=== PATIENT | female | born 2000 | race African-American/Black ===

== ENCOUNTER 2020-09-10 13:42 | Emergency (ER) | payer MEDICAID ==
[~2020-09-10] VITALS: Ht 165.1 cm; Wt 52.6 kg
[2020-09-10 15:12] VITALS: BP 111/64
== END 2020-09-10 18:00 | disposition home or self-care (01) ==
LOC: ER 13:42
DX: S40.862A Insect bite (nonvenomous) of left upper arm, initial encounter (principal); S40.861A Insect bite (nonvenomous) of right upper arm, initial encounter; W57.XXXA Bitten or stung by nonvenomous insect and other nonvenomous arthropods, initial encounter; Y93.89 Activity, other specified; Y92.89 Other specified places as the place of occurrence of the external cause; Y99.8 Other external cause status

== ENCOUNTER 2021-01-02 17:41 | Emergency (ER) | payer MEDICAID ==
[~2021-01-02] VITALS: Ht 165.1 cm; Wt 53.1 kg
[2021-01-02 17:42] VITALS: BP 109/70
== END 2021-01-02 20:00 | disposition left against medical advice (07) ==
LOC: ER 17:41
DX: S61.215A Laceration without foreign body of left ring finger without damage to nail, initial encounter (principal); S61.217A Laceration without foreign body of left little finger without damage to nail, initial encounter; Z53.21 Procedure and treatment not carried out due to patient leaving prior to being seen by health care provider; W26.9XXA Contact with unspecified sharp object(s), initial encounter; Y93.89 Activity, other specified; Y92.89 Other specified places as the place of occurrence of the external cause; Y99.8 Other external cause status

== ENCOUNTER 2021-05-11 09:39 | Emergency (ER) | payer SELFPAY ==
[~2021-05-11] VITALS: Ht 162.6 cm; Wt 55.8 kg
[2021-05-11 09:57] VITALS: BP 109/66
[2021-05-11] MEDS ORDERED: CLIN300C8 PO (10:01)
[2021-05-11] MEDS ORDERED: IBUP600T27 PO (10:01)
== END 2021-05-11 10:21 | disposition home or self-care (01) ==
LOC: ER 09:39
DX: K04.7 Periapical abscess without sinus (principal); F17.210 Nicotine dependence, cigarettes, uncomplicated

== ENCOUNTER 2024-05-14 15:37 | Emergency (ER) | payer SELFPAY ==
[~2024-05-14] VITALS: Ht 167.6 cm; Wt 63.7 kg
[~2024-05-14 15:37] MED LIST: CLIN1CAP70 PO; IBUP-1454 PO
[2024-05-14 16:33] VITALS: TEMP 99.1
[2024-05-14] MEDS: LORazepam 2MG/ML-1ML VIAL IM ONE ×2 (16:33→17:08)
[2024-05-14 16:43] VITALS: PULSE 127; RESP 22; O2SAT 97
--- NOTE | 2024-05-14 17:53 | ED.PDOC ---
Psychiatric HPI Comments 23 year old female presents to ED via EMS for chief complaint mental health. Per EMS, pt was at [employer] working when she suddenly began to behave erratically, speaking in tongue and chanting. VSS. Unable to elicit any medical history is the patient was in a psychotic event. Chief Complaint: Mental Health Time Seen by MD: 15:55 Primary Care Provider: TEZ Reviewed Notes: Nurses Notes, Laundry Assistant Notes, Medications, Allergies Information Source: Patient, Emergency Med Personnel Mode of Arrival: EMS Severity: Unable to Care for Self Severity of Pain: None Severity of Mental Status: Moderate Severity of Symptoms: Moderate Timing: Hours Duration: Since onset Prehospital treatment: None Presents with: Unclear Thinking, Bizarre Behavior Circumstance: Causing a Disturbance Current substance abuse: Unknown History of: None Quality: Confusion, Hallucinations Location: None Location of pain or injury: None Associated signs and symptoms: Hallucinations, Other Past Medical History PAST MEDICAL HISTORY: Denies Surgical History: Denies all surgeries HAND HIDE STRETCHER History: Denies all HAND HIDE STRETCHER Hx Family History Family History: Reviewed,noncontributory to illness Social History Smoker: Cigarettes Alcohol: Denies ETOH Use Drugs: Denies Drug Use Lives In: Home Constitutional: denies: chills, diaphoresis, fatigue, fever, malaise, sweats, weakness, others EENTM: denies: blurred vision, double vision, ear bleeding, ear discharge, ear drainage, ear pain, ear ringing, eye pain, eye redness, hearing loss, mouth pain, mouth swelling, nasal discharge, nose bleeding, nose congestion, nose pain, photophobia, tearing, throat pain, throat swelling, voice changes, others Respiratory: denies: cough, hemoptysis, orthopnea, SOB at rest, shortness of breath, SOB with excertion, stridor, wheezing, others Cardiovascular: denies: chest pain, dizzy spells, diaphoresis, Dyspnea on exertion, edema, irregular heart beat, left arm pain, lightheadedness, palpitations, PND, syncope, others Gastrointestinal: denies: abdomen distended, abdominal pain, blood streaked bowels, constipated, diarrhea, dysphagia, difficulty swallowing, hematemesis, melena, nausea, poor appetite, poor fluid intake, rectal bleeding, rectal pain, vomiting, others Genitourinary: denies: abnormal vagina bleeding, burning, dyspareunia, dysuria, flank pain, frequency, hematuria, incontinence, pain, , vagina discharge, urgency, others Neurological: denies: dizziness, fainting, headache, left sided numbness, left sided weakness, numbness, paresthesia, pre-existing deficit, right sided numbness, right sided weakness, seizure, speech problems, tingling, tremors, weakness, others Musculoskeletal: denies: back pain, gout, joint pain, joint swelling, muscle pain, muscle stiffness, neck pain, others Integumetry: denies: bruises, change in color, change in hair/nails, dryness, laceration, lesions, lumps, rash, wounds, others Allergic/Immunocompromised: denies: Difficulty Healing, Frequent Infections, Hives, Itching, others Hematologic/Lymphatic: denies: anemia, blood clots, easy bleeding, easy bruising, swollen glands, others Endocrine: denies: excessive hunger, excessive sweating, excessive thirst, excessive urination, flushing, intolerance to cold, intolerance to heat, unexplained weight gain, unexplained weight loss, others Psychiatric: reports: others; denies: anxiety, bipolar disorder, depression, hopeless, panic disorder, schizophrenia, sleepless, suicidal Unable to Obtain due to: Altered Mental Status All Other Systems: Reviewed and Negative Physical Exam General Appearance: Moderate Distress (Due to psychotic event.) HEENT: Normal ENT Inspection, Pharynx Normal, TMs Normal Neck: Full Range of Motion, Non-Tender, Normal, Normal Inspection Respiratory: Chest Non-Tender, Lungs Clear, No Accessory Muscle Use, No Respiratory Distress, Normal Breath Sounds Cardiovascular: No Edema, No JVD, No Murmur, No Gallop, Normal Peripheral Pul ses, Regular Rate/Rhythm Breast Exam: Deferred Gastrointestinal: No Organomegaly, Non Tender, No Pulsatile Mass, Normal Bowel Sounds, Soft Genitalia: Deferred Pelvic: Deferred Rectal: Deferred Extremities: No calf tenderness, Normal capillary refill, No pedal edema Musculoskeletal : Apperance: Normal Neurologic: Alert, No Motor Deficits, No Sensory Deficits, Other ( Patient was acting erratically and speaking in tongues.) Cerebellar Function: NOT DONE Reflexes: NOT DONE Skin: Dry, Normal Color, Warm Lymphatic: No Adenopathy Was a procedure done? Was a procedure done?: No Psych Differential Dx Psych. Differential Dx: Anxiety, Bipolar Disorder, Schizoprenia, Suicidal X-Ray, Labs, Meds, VS Vital Signs Date Time Temp Pulse Resp B/P (MAP) Pulse Ox O2 Delivery O2 Flow Rate FiO2 05/14/24 19:50 16 112/65 (81) 98 05/14/24 19:50 16 98 Room Air* 0 21 05/14/24 16:43 127 22 97 Room Air* 0 21 05/14/24 16:43 123 22 116/74 (88) 97 05/14/24 16:33 99.1 122 25 127/84 (98) 99 99.1 Lab Test 05/14/24 18:44 Range/Units White Blood Count 11.8 H 4.4-10.8 10^3/uL Red Blood Count 4.31 4.0-5.20 10^6/uL Hemoglobin 13.0 12.2-16.2 g/dL Hematocrit 38.1 36.0-46.0 % Mean Corpuscular Volume 88.3 80.0-100.0 fL Mean Corpuscular Hemoglobin 30.0 28.0-32.0 pg Mean Corpuscular Hemoglobin Concent 34.0 32.0-36.0 g/dL Red Cell Distribution Width 13.5 11.8-14.3 % Platelet Count 221 140-450 10^3/uL Mean Platelet Volume 10.9 H 6.9-10.8 fL Neutrophils (%) (Auto) 85.6 H 37.0-80.0 % Lymphocytes (%) (Auto) 9.6 L 10.0-50.0 % Monocytes (%) (Auto) 4.5 0.0-12.0 % Eosinophils (%) (Auto) 0.0 0.0-7.0 % Basophils (%) (Auto) 0.3 0.0-2.0 % Neutrophils # (Auto) 10.1 H 1.6-8.6 10 ^3/uL Lymphocytes # (Auto) 1.1 0.4-5.4 10 ^3/uL Monocytes # (Auto) 0.5 0-1.3 10 ^3/uL Eosinophils # (Auto) 0 0-0.8 10 ^3/uL Basophils # (Auto) 0 0-0.2 10 ^3/uL Nucleated Red Blood Cells 0.0 % Sodium Level 141 136-145 mmol/L Potassium Level 3.7 3.5-5.1 mmol/L Chloride Level 108 H 98-107 mmol/L Carbon Dioxide Level 23 20-31 mmol/L Anion Gap 10 5-15 Blood Urea Nitrogen 9 9-23 mg/dL Creatinine 0.71 0.550-1.02 mg/dL Glomerular Filtration Rate Calc 121 >90 mL/min BUN/Creatinine Ratio 12.7 10.0-20.0 Serum Glucose 91 74-106 mg/dL Lactic Acid Level 1.0 0.4-2.0 mmol/L Calcium Level 9.8 8.7-10.4 mg/dL Total Bilirubin 0.8 0.2-1.0 mg/dL Aspartate Amino Transferase (AST) 19 13-40 U/L Alanine Aminotransferase (ALT) 14 7-40 U/L Alkaline Phosphatase 56 46-116 U/L Total Protein 7.4 5.7-8.2 g/dL Albumin 4.7 3.2-4.8 g/dL Lipase 27 12-53 U/L Plasma/Serum Blood Alcohol < 3.0 <10 mg/dL Current Medications Medications (Trade) Dose Ordered Sig/Asif Route Start Time Stop Time Status Last Admin Lorazepam (Ativan Inj) 1 mg PRN ONCE IM 05/14/24 15:45 05/14/24 15:46 DC 05/14/24 16:33 Lorazepam (Ativan Inj) 1 mg ONCE ONCE IM 05/14/24 17:00 05/14/24 17:01 DC 05/14/24 17:08 X-Ray, Labs, Meds, VS Comment Patient will remain in ED until laboratories were returned. Patient will require a psych evaluation and probable placement. Patient care will be transferred to Dr. Sanchez as he is the overnight MD. After several hours, patient stated she want to leave the facility. I advised the patient that I think that would be dangerous as there is a potential for significant medical consequences. Patient stated she understood and signed an AMA form prior to leaving the campus. Patient denied any SI or HI. Patient's brother will receive the patient for discharge. Time of 1ST Reevaluation: 21:51 Reevaluation 1ST: Improved Consultation: PCP, Psychiatry Patient Education/Counseling: Diagnosis, Treatment Family Education/Counseling: Diagnosis, Treatment, No Family Present Departure 1 Departure Time of Disposition: 21:51 Impression: Primary Impression: Psychosis Disposition: LEFT AGAINST MEDICAL ADVICE Condition: Fair Discharged With: Self, Relative Critical Care Note Critical Care Time?: No Stability Stability form required: No Heart Score Heart Score: Heart Score Response (Comments) Value History N/A 0 EKG N/A 0 Age N/A 0 Risk Factors N/A 0 Troponin N/A 0 Total 0 I personally scribed for JUSTIN MONTGOMERY PAC ([email or web address]) on 05/14/24 at 17:53. Electronically submitted by Marta Brown ([email or web address]). JUSTIN MONTGOMERY PAC May 14, 2024 17:53
[2024-05-14 19:07] LABS: Basophils # (auto) 0 10 ^3/uL (0-0.2); Basophils % (auto) 0.3 % (0.0-2.0); Eosinophils # (auto) 0 10 ^3/uL (0-0.8); Hematocrit 38.1 % (36.0-46.0); Lymphocytes # (auto) 1.1 10 ^3/uL (0.4-5.4); Lymphocytes % (auto) 9.6 % (10.0-50.0); Mean Corpuscular Volume 88.3 fL (80.0-100.0); Monocytes # (auto) 0.5 10 ^3/uL (0-1.3); Monocytes % (auto) 4.5 % (0.0-12.0); Neutrophils # (auto) 10.1 10 ^3/uL (1.6-8.6); Neutrophils % (auto) 85.6 % (37.0-80.0); Platelet Count (auto) 221 10^3/uL (140-450); Red Blood Cells 4.31 10^6/uL (4.0-5.20); Red Cell Distribution Width 13.5 % (11.8-14.3); White Blood Cell 11.8 10^3/uL (4.4-10.8)
[2024-05-14 19:27] LABS: Alanine Aminotransferase 14 U/L (7-40); Albumin 4.7 g/dL (3.2-4.8); Alkaline Phosphatase 56 U/L (46-116); Anion Gap 10 (5-15); Aspartate Aminotransferase 19 U/L (13-40); BUN/Creatinine Ratio 12.7 (10.0-20.0); Blood Urea Nitrogen 9 mg/dL (9-23); Calcium 9.8 mg/dL (8.7-10.4); Carbon Dioxide 23 mmol/L (20-31); Chloride 108 mmol/L (98-107); Glucose 91 mg/dL (74-106); Lipase 27 U/L (12-53); Potassium 3.7 mmol/L (3.5-5.1); Sodium 141 mmol/L (136-145); Total Protein 7.4 g/dL (5.7-8.2)
[2024-05-14 19:28] LABS: Bilirubin, Total 0.8 mg/dL (0.2-1.0)
[2024-05-14 19:47] LABS: Blood Alcohol < 3.0 mg/dL (<10)
[2024-05-14 19:50] VITALS: BP 112/65; RESP 16; O2SAT 98
== END 2024-05-15 02:40 | disposition left against medical advice (07) ==
LOC: EDBD 15:37 → ER 15:37 → EDUNIT# 15:37 → ER 05-15 02:40
DX: F29 Unspecified psychosis not due to a substance or known physiological condition (principal); R41.82 Altered mental status, unspecified; F17.210 Nicotine dependence, cigarettes, uncomplicated
CPT/HCPCS: 36415; 80053; 80320; 83605; 83690; 85025; 96372; 99284; J2060

== ENCOUNTER 2024-05-16 00:46 | Emergency (ER) | payer MEDICAID ==
[~2024-05-16] VITALS: Ht 154.9 cm; Wt 52.3 kg
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
[2024-05-16 01:52] LABS: Acetaminophen < 2.0 UG/ML (10.0-20.0); Salicylate < 3.0 mg/dL (-30)
[2024-05-16 02:16] VITALS: TEMP 98.4
[2024-05-16 04:00] VITALS: BP 116/78; PULSE 79; RESP 20; O2SAT 98
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
[2024-05-16 06:41] LABS: Amphetamine Screen, Urine Neg (NEGATIVE); Barbiturate Scree,Urine Neg (NEGATIVE); Benzodiazephine Screen, Urine Neg (NEGATIVE); Cannabinoid Screen, Urine Pos (NEGATIVE); Cocaine Screen, Urine Neg (NEGATIVE); Opiate Scree,Urine Neg (NEGATIVE); Phencyclidine Screen, Urine Neg (NEGATIVE)
[2024-05-16] MEDS ORDERED: HALOPERIDOL LACTATE 5 MG/ML INJ VIAL IM ONE (09:00)
[2024-05-16] MEDS ORDERED: LORazepam 2MG/ML-1ML VIAL IM ONE (09:00)
== END 2024-05-16 08:30 | disposition left against medical advice (07) ==
LOC: EDBD 00:46 → ER 00:46
DX: F29 Unspecified psychosis not due to a substance or known physiological condition (principal); Z73.6 Limitation of activities due to disability; Z79.899 Other long term (current) drug therapy
CPT/HCPCS: 36415; 80307; 80320; 80329; 84702

== ENCOUNTER 2024-05-16 09:42 | Inpatient (IN) | payer MEDICAID ==
[~2024-05-16] VITALS: Ht 160 cm; Wt 54.5 kg
[2024-05-16] MEDS: HALOPERIDOL LACTATE 5 MG/ML INJ VIAL IM ONE (10:14)
[2024-05-16] MEDS: LORazepam 2MG/ML-1ML VIAL IM ONE (10:15)
--- NOTE | 2024-05-16 10:27 | ED.PDOC ---
Psychiatric HPI Comments 23 year old female JANIS presents to the ED with chief complaint of mental health evaluation. EMS reports patient had eloped from the ED earlier today when there was an attempt to provide medication for the patient. EMS relays that 's had found the patient and brought her back to the ED due to believing she was on a hold. Patient continues to demonstrate delusions and psychosis, but denies any SI, HI, AH, or VH. Chief Complaint: Mental Health Time Seen by MD: 10:23 Primary Care Provider: DENIES Reviewed Notes: Nurses Notes, Medications, Allergies Information Source: Patient, Emergency Med Personnel Mode of Arrival: EMS Severity: Able to Care for Self, Unable to Control Self Severity of Pain: None Severity of Mental Status: Moderate Severity of Symptoms: Moderate Timing: Days Duration: Since onset Prehospital treatment: None Presents with: Bizarre Behavior Ingestion: None Circumstance: Causing a Disturbance Current substance abuse: None Stressors: None History of: None Past Medical History PAST MEDICAL HISTORY: Denies Surgical History: Denies all surgeries 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: 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 ROOM CLERK Hx Family History Family History: Reviewed,noncontributory to illness Social History Smoker: Non-Smoker Alcohol: Denies ETOH Use Drugs: Denies Drug Use Lives In: Home Constitutional: denies: chills, diaphoresis, fatigue, fever, malaise, sweats, weakness, others EENTM: denies: blurred vision, double vision, ear bleeding, ear discharge, ear drainage, ear pain, ear ringing, eye pain, eye redness, hearing loss, mouth pain, mouth swelling, nasal discharge, nose bleeding, nose congestion, nose pain, photophobia, tearing, throat pain, throat swelling, voice changes, others Respiratory: denies: cough, hemoptysis, orthopnea, SOB at rest, shortness of breath, SOB with excertion, stridor, wheezing, others Cardiovascular: denies: chest pain, dizzy spells, diaphoresis, Dyspnea on exertion, edema, irregular heart beat, left arm pain, lightheadedness, palpitations, PND, syncope, others Gastrointestinal: denies: abdomen distended, abdominal pain, blood streaked bowels, constipated, diarrhea, dysphagia, difficulty swallowing, hematemesis, melena, nausea, poor appetite, poor fluid intake, rectal bleeding, rectal pain, vomiting, others Genitourinary: denies: abnormal vagina bleeding, burning, dyspareunia, dysuria, flank pain, frequency, hematuria, incontinence, pain, , vagina discharge, urgency, others Neurological: denies: dizziness, fainting, headache, left sided numbness, left sided weakness, numbness, paresthesia, pre-existing deficit, right sided numbness, right sided weakness, seizure, speech problems, tingling, tremors, weakness, others Musculoskeletal: denies: back pain, gout, joint pain, joint swelling, muscle pain, muscle stiffness, neck pain, others Integumetry: denies: bruises, change in color, change in hair/nails, dryness, laceration, lesions, lumps, rash, wounds, others Allergic/Immunocompromised: denies: Difficulty Healing, Frequent Infections, Hives, Itching, others Hematologic/Lymphatic: denies: anemia, blood clots, easy bleeding, easy bruising, swollen glands, others Endocrine: denies: excessive hunger, excessive sweating, excessive thirst, excessive urination, flushing, intolerance to cold, intolerance to heat, unexp lained weight gain, unexplained weight loss, others Psychiatric: denies: anxiety, bipolar disorder, depression, hopeless, panic disorder, schizophrenia, sleepless, suicidal, others All Other Systems: Reviewed and Negative Physical Exam General Appearance: Moderate Distress, Normal HEENT: Normal ENT Inspection, PERRL/EOMI Neck: Full Range of Motion, Non-Tender, Normal, Normal Inspection Respiratory: Chest Non-Tender, Lungs Clear, No Accessory Muscle Use, No Respiratory Distress, Normal Breath Sounds Cardiovascular: No Edema, No JVD, No Murmur, No Gallop, Normal Peripheral Pulses, Regular Rate/Rhythm Breast Exam: Deferred Gastrointestinal: No Organomegaly, Non Tender, No Pulsatile Mass, Normal Bowel Sounds, Soft Genitalia: Deferred Pelvic: Deferred Rectal: Deferred Extremities: No calf tenderness, Normal capillary refill, Normal inspection, Normal range of motion, Non-tender, No pedal edema Musculoskeletal : Apperance: Normal Neurologic: Alert, assembler adjuster II-XII nml as Tested, No Motor Deficits, Normal Affect, Normal Mood, No Sensory Deficits Cerebellar Function: Normal Reflexes: Normal Skin: Dry, Normal Color, Warm Peripheral Pulses: 3+ Radial (R), 3+ Radial (L) Lymphatic: No Adenopathy Was a procedure done? Was a procedure done?: No Psych Differential Dx Psych. Differential Dx: Anxiety X-Ray, Labs, Meds, VS Vital Signs Date Time Temp Pulse Resp B/P (MAP) Pulse Ox O2 Delivery O2 Flow Rate FiO2 05/16/24 09:50 98.6 88 18 142/76 (98) 100 98.6 Current Medications Medications (Trade) Dose Ordered Sig/Asif Route Start Time Stop Time Status Last Admin Haloperidol Lactate (Haldol) 10 mg ONCE ONCE IM 05/16/24 10:00 05/16/24 10:01 DC 05/16/24 10:14 Lorazepam (Ativan Inj) 1 mg ONCE ONCE IM 05/16/24 10:00 05/16/24 10:01 DC 05/16/24 10:15 Patient alert Was just in this ER. She ran off. Vitals stable. Psychiatric evaluation placed on a hold. Was given Haldol. Was given Ativan. Reviewed her previous visit. She will be admitted for further studies. Denies suicidal or homicidal ideation. Continue monitoring. Time of 1ST Reevaluation: 11:23 Reevaluation 1ST: Unchanged Patient Education/Counseling: Diagnosis, Treatment Family Education/Counseling: No Family Present Additional Information Previous visit documents reviewed: 05/16/24 for mental health The following tests were ordered, and results were reviewed by me: None Additional Information was gathered from interviewing the following independent historians: EMS I reviewed and agreed with the following test results read by other providers: None I discussed treatment and results with medical personnel and: Patient Comprehensive systems review obtained and negative except for what is stated in the HPI. Departure 1 Departure Time of Disposition: 10:36 Impression: Primary Impression: Psychosis Qualified Codes: F29 - Unspecified psychosis not due to a substance or known physiological condition Disposition: ADMITTED INPATIENT Admit to: Med Surg Condition: Guarded Critical Care Note Critical Care Time?: No Stability Stability form required: No Heart Score Heart Score: Heart Score Response (Comments) Value History N/A 0 EKG N/A 0 Age N/A 0 Risk Factors N/A 0 Troponin N/A 0 Total 0 I personally scribed for CHELLY LOPEZ MD ([email or web address]) on 05/16/24 at 10:27. Electronically submitted by Quinn Donovan ([email or web address]). CHELLY LOPEZ MD May 16, 2024 10:27
--- NOTE | 2024-05-16 13:14 | DVHHP2 ---
History of Present Illness Reason for Visit: Psychosis History of Present Illness 23-year-old female unknown medical history unknown surgical history not answering provider does not respond to provider chief complaint patient appears to be brought in by ambulance for mental health evaluation. It appears patient was in the ED yesterday and she had low police department found her and brought her back to the ER. It appears patient was to be placed on hold due to acute says causes but has not been evaluated by psych as of yet. Did review labs from yesterday CBC unremarkable CMP unremarkable UA no major infection seen. Patient was cleared for psych. Urine drug screen only showed marijuana. We will admit for psych placement patient was medically stable for transfer Past Medical History Unknown medical history patient does not answer any questions Past Surgical History Unknown surgical history patient does not answer Past Social History Unknown if drink smoke or do drugs patient does not answer Review of Systems Review of Systems Unable to assess HPI due to patient not answering questions Allergies: Coded Allergies: NO KNOWN ALLERGIES (Unverified , 02/25/12) Exam Vital Signs Vital Signs Date Time Temp Pulse Resp B/P (MAP) Pulse Ox O2 Delivery O2 Flow Rate FiO2 05/16/24 09:50 98.6 88 18 142/76 (98) 100 98.6 General Appearance: Other (Nonverbal on my exam declines exam) Labs/Xrays I reviewed labs from May 14, 2024 Assessment/Plan Assessment/Plan acute psychosis unknown etiology unknown psych history Blood work unremarkable Urine drug screen only shows marijuana Unknown psych history Order Ativan as needed or Haldol for acute agitation Patient medically stable for psych evaluation Order tele psych follow up recs Continue one-to-one sitter for now survey worker to assess for discharge planning fen/ppx diet hl scd no dvt ppx since ambulatory plan admit to medicine for placement Plan discussed with: Other (reviewed chart ) Date of Service: May 16, 2024 Billing Provider: LAMONT ANDRADE DNP Common Visit Codes: 37459-[id number] INP/OBS CARE (MOD) LAMONT ANDRADE DNP May 16, 2024 13:14
[2024-05-16] MEDS ORDERED: NITROGLYCERIN 0.4 MG SL TAB SL PRN (13:15)
[2024-05-16] MEDS ORDERED: DOCUSATE SOD 100 MG CAP PO PRN (13:15)
[2024-05-16] MEDS ORDERED: ONDANSETRON HCL 4 MG/2 ML VIAL IV PRN (13:15)
[2024-05-17 02:10] VITALS: BP 110/66; PULSE 66; RESP 18; TEMP 98; O2SAT 96
== END 2024-05-17 05:58 | disposition left against medical advice (07) | DRG 751 ==
LOC: ER 09:42 → EDBD 09:42 → OVERFLOW 13:12
PROVIDERS: ADMIT Nurse Practitioner Acute Care; ATTEND Nurse Practitioner Acute Care
DX: F23 Brief psychotic disorder (principal); F12.90 Cannabis use, unspecified, uncomplicated; Z53.29 Procedure and treatment not carried out because of patient's decision for other reasons
CPT/HCPCS: 96372; G0378

== ENCOUNTER 2025-01-18 17:11 | Emergency (ER) | payer SELFPAY ==
[~2025-01-18] VITALS: Ht 162.6 cm; Wt 60.6 kg
[2025-01-18] MEDS: LIDOCAINE VISCOUS 2% 15ML UD PO ONE (17:49)
[2025-01-18 17:56] VITALS: BP 120/76; PULSE 74; RESP 16; TEMP 98.1; O2SAT 97
[2025-01-18] MEDS ORDERED: IBUP1TAB5 PO (18:03)
[2025-01-18] MEDS ORDERED: AMOX500T3 PO (18:03)
--- NOTE | 2025-01-18 18:12 | ED.PDOC ---
Eye-HPI HPI Comments 24-year-old female who presents to the ED complaint of tooth pain. The patient states that she has a wisdom tooth in the right lower quadrant of her mouth and states it is growing outwards towards her jaw and states a space has formed in between and an abscess has developed. Patient states she has noticed abscess develop over the past year but states she decided not to take care of it until the past few days because it increasing pain when attempting to eat or drink. Patient otherwise states that she has not seen a dentist dentist in the past few years some due to not having dental insurance. The patient in the ED otherwise has stable vitals. The patient otherwise denies any other symptoms. Chief Complaint: Tooth Pain Time Seen by MD: 17:39 Primary Care Provider: DENIES Reviewed Notes: Medications, Allergies Allergies: Coded Allergies: Pork Allergy (Obsolete) (Verified Allergy, Intermediate, 05/17/24) Home Meds Active Scripts Clindamycin Hcl (Clindamycin Hcl) 300 Mg Cap, 1 CAP PO TID, #30 CAP Prov:KRISTIAN VENEGAS 01/20/25 Chlorhexidine Gluconate (Mouth (CHLORHEXIDINE ORAL RINSE) 473 Ml So, 15 ML MT Q12HR for 7 Days, #300 ML 0 Refills Prov:HARRIS ROQUE EXPENSE ANALYST 01/18/25 Ibuprofen Micronized (Ibuprofen) 600 Mg Tab, 600 MG PO TIDPRN PRN for 10 Days, #30 TAB 0 Refills Prov:HARRIS ROQUE EXPENSE ANALYST 01/18/25 Amoxicillin Trihydrate (Amoxicillin) 500 Mg Tab, 1 TAB PO BID for 10 Days, #20 TAB 0 Refills Prov:HARRIS ROQUE EXPENSE ANALYST 01/18/25 Ibuprofen (Ibuprofen) 600 Mg Tab, 600 MG PO TID for 10 Days, #30 TAB Prov:RKISTIAN VENEGAS 05/11/21 Clindamycin Hcl (Clindamycin Hcl) 300 Mg Cap, 300 MG PO TID, #30 CAP Prov:KRISTIAN VENEGAS 05/11/21 Information Source: Patient Mode of Arrival: Ambulatory Brought in by: Self Past Medical History PAST MEDICAL HISTORY: Denies Surgical History: Denies all surgeries LEAD WELDER History: Denies all LEAD WELDER Hx Family History Family History: Reviewed,noncontributory to illness Social History Smoker: Non-Smoker Alcohol: Denies ETOH Use Drugs: Denies Drug Use Lives In: Home Constitutional: denies: chills, diaphoresis, fatigue, fever, malaise, sweats, weakness, others EENTM: reports: mouth pain; denies: blurred vision, double vision, ear ble eding, ear discharge, ear drainage, ear pain, ear ringing, eye pain, eye redness, hearing loss, mouth swelling, nasal discharge, nose bleeding, nose congestion, nose pain, photophobia, tearing, throat pain, throat swelling, voice changes, others Respiratory: denies: cough, hemoptysis, orthopnea, SOB at rest, shortness of breath, SOB with excertion, stridor, wheezing, others Cardiovascular: denies: chest pain, dizzy spells, diaphoresis, Dyspnea on exertion, edema, irregular heart beat, left arm pain, lightheadedness, palpitations, PND, syncope, others Gastrointestinal: denies: abdomen distended, abdominal pain, blood streaked bowels, constipated, diarrhea, dysphagia, difficulty swallowing, hematemesis, melena, nausea, poor appetite, poor fluid intake, rectal bleeding, rectal pain, vomiting, others Genitourinary: denies: abnormal vagina bleeding, burning, dyspareunia, dysuria, flank pain, frequency, hematuria, incontinence, pain, , vagina discharge, urgency, others Neurological: denies: dizziness, fainting, headache, left sided numbness, left sided weakness, numbness, paresthesia, pre-existing deficit, right sided numbness, right sided weakness, seizure, speech problems, tingling, tremors, weakness, others Musculoskeletal: denies: back pain, gout, joint pain, joint swelling, muscle pain, muscle stiffness, neck pain, others Integumetry: denies: bruises, change in color, change in hair/nails, dryness, laceration, lesions, lumps, rash, wounds, others Allergic/Immunocompromised: denies: Difficulty Healing, Frequent Infections, Hives, Itching, others Hematologic/Lymphatic: denies: anemia, blood clots, easy bleeding, easy bruising, swollen glands, others Endocrine: denies: excessive hunger, excessive sweating, excessive thirst, excessive urination, flushing, intolerance to cold, intolerance to heat, unexplained weight gain, unexplained weight loss, others Psychiatric: denies: anxiety, bipolar disorder, depression, hopeless, panic disorder, schizophrenia, sleepless, suicidal, others All Other Systems: Reviewed and Negative Physical Exam General Appearance: No Apparent Distress, Normal HEENT: Other (r lower quardant abscess noted, multiple dental caries to r upper and lower quadrant) Neck: Full Range of Motion, Non-Tender, Normal, Normal Inspection Respiratory: Chest Non-Tender, Lungs Clear, No Accessory Muscle Use, No Respiratory Distress, Normal Breath Sounds Cardiovascular: No Edema, No JVD, No Murmur, No Gallop, Normal Peripheral Pulses, Regular Rate/Rhythm Breast Exam: Deferred Gastrointestinal: No Organomegaly, Non Tender, No Pulsatile Mass, Normal Bowel Sounds, Soft Genitalia: Deferred Pelvic: Deferred Rectal: Deferred Extremities: No calf tenderness, Normal capillary refill, Normal inspection, Normal range of motion, Non-tender, No pedal edema Musculoskeletal : Apperance: Normal Neurologic: Alert, site technician II-XII nml as Tested, No Motor Deficits, Normal Affect, Normal Mood, No Sensory Deficits Cerebellar Function: Normal Reflexes: Normal Skin: Dry, Normal Color, Warm Lymphatic: No Adenopathy Was a procedure done? Was a procedure done?: Yes Sedation Sedation?: No Incision and Drainage Incision and Drainage: Abscess Anesthetic: Lidocaine Preparation: Other (NONE.) Incision and Wound: Pus Informed consent obtained: Yes Risks/benefits/alt described: Yes EENT DIFF Eye: Other Ear: Dental, Pharyngitis, TMJ Syndrome X-Ray, Labs, Meds, VS Vital Signs Date Time Temp Pulse Resp B/P (MAP) Pulse Ox O2 Delivery O2 Flow Rate FiO2 01/18/25 17:56 98.1 74 16 120/76 (91) 97 98.1 01/18/25 17:56 74 16 97 Room Air 01/18/25 17:12 98.2 100 16 115/79 98 98.2 X-Ray, Labs, Meds, VS Comment Patient arrives alert and oriented, ABC's intact, afebrile, vital signs stable, saturating well in room air Abscess This patient presents with signs and symptoms consistent with a gingival abscess. The abscess is localized without any evidence of deep soft tissue infection based on physical examination. The patient required incision and drainage. I also considered deep space infection, necrotizing sepsis, however, this is less likely as the patient does not have rapid expanding erythema or pain out of proportion Procedure Note: Verbal informed consent was obtained from the patient. I discussed the indications, benefits, alternatives and complications to performing an incision and drainage. The patient understands the risks include, but are not limited to scarring, underlying structure injury, bleeding, nerve injury, new infection, and resultant disability. The skin surrounding the abscess was locally anesthetized using 1% Lidocaine An incision using a 18 guage was made overlying the abscess. The wound was hemostatic at the conclusion of the procedure. The patient did not appear to suffer any complications as a result of the procedure. The patient was Rx ABX and will f/u with PMD and their dental provider 1-3 days or return to the ER sooner if it worsens. The patient understands to return to the ER or seek immediate medical attention if the symptoms worsen. Time of 1ST Reevaluation: 18:10 Reevaluation 1ST: Unchanged Patient Education/Counseling: Diagnosis, Treatment Family Education/Counseling: No Family Present SEPSIS Sepsis Screen Date sepsis recognized/suspect: Jan 18, 2025 Time Sepsis recognized/suspect: 1713 Recent Procedure: No On Antibiotic Therapy: No Respiratory Rate >20: No Heart Rate >90: Yes Temp<36 C (96.8 F) or >38.3 C: No SBP <90 or MAP <65 mmHG: No New Acute Mental Status Change: No Is the patient on CPAP, BIPAP,: No Vital Signs Date Time Temp Pulse Resp B/P (MAP) Pulse Ox O2 Delivery O2 Flow Rate FiO2 01/18/25 17:56 98.1 74 16 120/76 (91) 97 98.1 01/18/25 17:56 74 16 97 Room Air 01/18/25 17:12 98.2 100 16 115/79 98 98.2 Departure 1 Departure Time of Disposition: 18:13 Impression: Primary Impression: Dental infection Additional Impression: Abscess Disposition: HOME / SELF CARE / HOMELESS Condition: Stable e-Prescriptions Chlorhexidine Gluconate (Mouth (CHLORHEXIDINE ORAL RINSE) 473 Ml So 15 ML MT Q12HR for 7 Days, #300 ML 0 Refills Prov: HARRIS ROQUE EXPENSE ANALYST 01/18/25 Ibuprofen Micronized (Ibuprofen) 600 Mg Tab 600 MG PO TIDPRN PRN for 10 Days, #30 TAB 0 Refills Prov: HARRIS ROQUE EXPENSE ANALYST 01/18/25 Amoxicillin Trihydrate (Amoxicillin) 500 Mg Tab 1 TAB PO BID for 10 Days, #20 TAB 0 Refills Prov: HARRIS ROQUE NP 01/18/25 Discharged With: Self Critical Care Note Critical Care Time?: No Stability Stability form required: No Heart Score Heart Score: Heart Score Response (Comments) Value History N/A 0 EKG N/A 0 Age N/A 0 Risk Factors N/A 0 Troponin N/A 0 Total 0 I personally scribed for HARRIS ROQUE NP ([email or web address]) on 01/18/25 at 18:12. Electronically submitted by Barb Smart ([email or web address]). HARRIS ROQUE NP Jan 18, 2025 18:12
[2025-01-18] MEDS ORDERED: CHL12OR MT (18:13)
== END 2025-01-18 18:22 | disposition home or self-care (01) ==
LOC: ER 17:11
DX: K04.7 Periapical abscess without sinus (principal); M27.2 Inflammatory conditions of jaws; Z79.899 Other long term (current) drug therapy
CPT/HCPCS: 41800

== ENCOUNTER 2025-01-20 10:36 | Emergency (ER) | payer SELFPAY ==
[~2025-01-20] VITALS: Ht 165.1 cm; Wt 61.5 kg
[~2025-01-20 10:36] MED LIST changes: +AMOX500T3 PO; +CHL12OR MT; +IBUP1TAB5 PO
[2025-01-20 10:55] VITALS: BP 112/63; PULSE 76; RESP 18; TEMP 98.7; O2SAT 96
--- NOTE | 2025-01-20 11:04 | ED.PDOC ---
Eye-HPI HPI Comments A 24 YEAR OLD FEMALE PRESENTS TO THE ED WITH COMPLAINT OF DENTAL PAIN. PATIENT STATES HE HAS BEEN EXPERIENCING DENTAL PAIN ON THE RIGHT UPPER SIDE OF HER MOUTH FOR THE PAST 3 DAYS. PATIENT REPORTS SHE BEGAN TO EXPERIENCE MILD RIGHT-SIDED FACIAL SWELLING 2 DAYS AGO, PROMPTING HER TO COME TO THE ED TODAY FOR EVALUATION. PATIENT ALSO NOTES THAT SHE HAS BEEN TAKING AMOXICILLIN, BUT NOTES THERE HAS BEEN NO IMPROVEMENT IN HER SYMPTOMS. PATIENT DENIES FEVER, CHILLS, SHORTNESS OF BREATH, CHEST PAIN, ABDOMINAL PAIN, NAUSEA, VOMITING, HEADACHE, OR OTHER COMPLAINTS. NO OTHER SYMPTOMS OR MODIFYING FACTORS AT THIS TIME. PATIENT IS ALERT, ORIENTED X 4, AND HAS STEADY GAIT. Chief Complaint: Tooth Pain Time Seen by MD: 10:37 Primary Care Provider: TEZ Reviewed Notes: Nurses Notes, Medications, Allergies Allergies: Coded Allergies: Pork Allergy (Obsolete) (Verified Allergy, Intermediate, 05/17/24) Home Meds Active Scripts Clindamycin Hcl (Clindamycin Hcl) 300 Mg Cap, 1 CAP PO TID, #30 CAP Prov:KRISTIAN VENEGAS 01/20/25 Chlorhexidine Gluconate (Mouth (CHLORHEXIDINE ORAL RINSE) 473 Ml So, 15 ML MT Q12HR for 7 Days, #300 ML 0 Refills Prov:HARRIS ROQUE BELT BACK OPERATOR 01/18/25 Ibuprofen Micronized (Ibuprofen) 600 Mg Tab, 600 MG PO TIDPRN PRN for 10 Days, #30 TAB 0 Refills Prov:HARRIS ROQUE BELT BACK OPERATOR 01/18/25 Amoxicillin Trihydrate (Amoxicillin) 500 Mg Tab, 1 TAB PO BID for 10 Days, #20 TAB 0 Refills Prov:HARRIS ROQUE BELT BACK OPERATOR 01/18/25 Ibuprofen (Ibuprofen) 600 Mg Tab, 600 MG PO TID for 10 Days, #30 TAB Prov:KRISTIAN VENEGAS 05/11/21 Clindamycin Hcl (Clindamycin Hcl) 300 Mg Cap, 300 MG PO TID, #30 CAP Prov:KRISTIAN VENEGAS 05/11/21 Information Source: Patient Mode of Arrival: Ambulatory Timing: Days Duration: Since onset, Days Prehospital treatment: None Quality: Pain, Red Lids: Normal Conjunctiva: Normal Cornea: Normal Pupils: Normal EOM: Normal Fundus: Normal Slit lamp exam: Normal Anterior chamber: Normal Mouth Location: Right, Upper, Tooth/Teeth, Gums Mouth: Right, Upper, Premolar, Molar, Tender, Carious ENT Ear Exam: Normal, Normal, Normal Nose: Normal Sinuses: Normal Oropharynx: Normal Onset: Spontaneous Throat Exposed to: None History of: None Last Tetanus: Unknown Modifying factors: Nothing Associated signs and symptoms: Tooth Pain Past Medical History PAST MEDICAL HISTORY: Denies Surgical History: Denies all surgeries 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: 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 all 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 Hx Family History Family History: Reviewed,noncontributory to illness Social History Smoker: Non-Smoker Alcohol: Denies ETOH Use Drugs: Denies Drug Use Lives In: Home Constitutional: denies: chills, diaphoresis, fatigue, fever, malaise, sweats, weakness, others EENTM: reports: mouth pain (RIGHT UPPER DENTAL PAIN); denies: blurred vision, double vision, ear bleeding, ear discharge, ear drainage, ear pain, ear ringing, eye pain, eye redness, hearing loss, mouth swelling, nasal discharge, nose bleeding, nose congestion, nose pain, photophobia, tearing, throat pain, throat swelling, voice changes, others Respiratory: denies: cough, hemoptysis, orthopnea, SOB at rest, shortness of breath, SOB with excertion, stridor, wheezing, others Cardiovascular: denies: chest pain, dizzy spells, diaphoresis, Dyspnea on exertion, edema, irregular heart beat, left arm pain, lightheadedness, palpitations, PND, syncope, others Gastrointestinal: denies: abdomen distended, abdominal pain, blood streaked bowels, constipated, diarrhea, dysphagia, difficulty swallowing, hematemesis, melena, nausea, poor appetite, poor fluid intake, rectal bleeding, rectal pain, vomiting, others Genitourinary: denies: abnormal vagina bleeding, burning, dyspareunia, dysuria, flank pain, frequency, hematuria, incontinence, pain, , vagina discharge, urgency, others Neurological: denies: dizziness, fainting, headache, left sided numbness, left sided weakness, numbness, paresthesia, pre-existing deficit, right sided numbness, right sided weakness, seizure, speech problems, tingling, tremors, weakness, others Musculoskeletal: denies: back pain, gout, joint pain, joint swelling, muscle pain, muscle stiffness, neck pain, others Integumetry: denies: bruises, change in color, change in hair/nails, dryness, laceration, lesions, lumps, rash, wounds, others Allergic/Immunocompromised: denies: Difficulty Healing, Frequent Infections, Hives, Itching, others Hematologic/Lymphatic: denies: anemia, blood clots, easy bleeding, easy bruising, swollen glands, others Endocrine: denies: excessive hunger, excessive sweating, excessive thirst, excessive urination, flushing, intolerance to cold, intolerance to heat, unexplained weight gain, unexplained weight loss, others Psychiatric: denies: anxiety, bipolar disorder, depression, hopeless, panic disorder, schizophrenia, sleepless, suicidal, others All Other Systems: Reviewed and Negative Physical Exam General Appearance: No Apparent Distress, Normal HEENT: Normal ENT Inspection, PERRL/EOMI, Pharynx Normal, TMs Normal, Other (ERYTHEMA AND SWELLING ON RIGHT UPPER GUM AROUND TOOTH, DENTAL INFECTION, MILD CHEEK SWELLING. ) Neck: Full Range of Motion, Non-Tender, Normal, Normal Inspection Respiratory: Chest Non-Tender, Lungs Clear, No Accessory Muscle Use, No Respiratory Distress, Normal Breath Sounds Cardiovascular: No Edema, No JVD, No Murmur, No Gallop, Normal Peripheral Pulses, Regular Rate/Rhythm Breast Exam: Deferred Gastrointestinal: No Organomegaly, Non Tender, No Pulsatile Mass, Normal Bowel Sounds, Soft Genitalia: Deferred Pelvic: Deferred Rectal: Deferred Extremities: No calf tenderness, Normal capillary refill, Normal inspection, Normal range of motion, Non-tender, No pedal edema Musculoskeletal : Apperance: Normal Neurologic: Alert, assessment consultant II-XII nml as Tested, No Motor Deficits, Normal Affect, Normal Mood, No Sensory Deficits Cerebellar Function: Normal Reflexes: Normal Skin: Dry, Normal Color, Warm Peripheral Pulses: 2+ carotid (R), 2+ carotid (L) Lymphatic: No Adenopathy Was a procedure done? Was a procedure done?: No EENT DIFF Eye: N/A Ear: Otitis Media, Dental, Pharyngitis, Other Nose: N/A Mouth: Other (DENTAL PAIN, DENTAL CARIES, DENTAL ABSCESS, GINGIVITIS, DENTAL INFECTION) Sore Throat: N/A X-Ray, Labs, Meds, VS Vital Signs Date Time Temp Pulse Resp B/P (MAP) Pulse Ox O2 Delivery O2 Flow Rate FiO2 01/20/25 10:55 98.7 76 18 112/63 (79) 96 98.7 01/20/25 10:55 76 18 96 Room Air 01/20/25 10:38 97.7 76 18 112/63 96 97.7 Current Medications Medications (Trade) Dose Ordered Sig/Asif Route Start Time Stop Time Status Last Admin Ceftriaxone Sodium (Rocephin) 1,000 mg ONCE ONCE IM 01/20/25 11:15 01/20/25 11:16 DC 01/20/25 11:08 X-Ray, Labs, Meds, VS Comment EXTERNAL MEDICAL RECORDS REVIEWED: [NONE] INDEPENDENT HISTORIANS: [NONE] SOCIAL DETERMINANTS OF HEALTH: [NONE] LABS ORDERED: NONE REVIEWED AND INTERPRETED RESULTS: NONE IMAGING ORDERED: NONE TREATMENTS ORDERED: ROCEPHIN 1G IM PROCEDURES PERFORMED: NONE CRITICAL CARE TIME: NONE I HAVE DISCUSSED THE PATIENT WITH THE ATTENDING PHYSICIAN DR. RAJAN AND HE AGREES WITH THE PATIENT'S PLAN OF CARE AND DISPOSITION. BASED ON HISTORY OF PRESENT ILLNESS, AND PHYSICAL EXAM, PATIENT WILL BE DISCHARGED HOME. DISCUSSED PLAN FOR DISCHARGE HOME WITH RX [CLINDAMYCIN 300MG]. MEDICATION WARNINGS GIVEN. SHARED DECISION MAKING: DISCUSSED WITH PATIENT THAT THEIR WORKUP WAS NORMAL. PATIENT INSTRUCTED TO FOLLOW UP WITH PRIMARY CARE PROVIDER IN 1-2 DAYS FOR RE- EVALUATION OF SYMPTOMS. PATIENT VERBALIZES UNDERSTANDING TO RETURN TO ED FOR NEW OR WORSENING SYMPTOMS OR IF FOLLOW UP WITH PCP CANNOT BE OBTAINED. PATIENT FEELS COMFORTABLE GOING HOME AT THIS TIME. ALL QUESTIONS ADDRESSED AT TIME OF DISCHARGE. Time of 1ST Reevaluation: 11:20 Reevaluation 1ST: Improved Patient Education/Counseling: Diagnosis, Treatment, Need For Follow Up Family Education/Counseling: Diagnosis, Treatment, Need For Follow Up Medical Screening: No EMC Exist At This Time SEPSIS Sepsis Screen Date sepsis recognized/suspect: Jan 20, 2025 Time Sepsis recognized/suspect: 1040 Recent Procedure: No On Antibiotic Therapy: No Respiratory Rate >20: No Heart Rate >90: No Temp<36 C (96.8 F) or >38.3 C: No SBP <90 or MAP <65 mmHG: No New Acute Mental Status Change: No Is the patient on CPAP, BIPAP,: No Physician Orders Ceftriaxone Sodium (Rocephin) (01/20/25 11:15) Vital Signs Date Time Temp Pulse Resp B/P (MAP) Pulse Ox O2 Delivery O2 Flow Rate FiO2 01/20/25 10:55 98.7 76 18 112/63 (79) 96 98.7 01/20/25 10:55 76 18 96 Room Air 01/20/25 10:38 97.7 76 18 112/63 96 97.7 Medications Medications Dose Ordered Sig/Asif Route Start Time Stop Time Status Last Admin Dose Admin Ceftriaxone Sodium 1,000 mg ONCE ONCE IM 01/20/25 11:15 01/20/25 11:16 DC 01/20/25 11:08 Departure 1 Departure Time of Disposition: 11:20 Impression: Primary Impression: Dental infection Disposition: HOME / SELF CARE / HOMELESS Condition: Stable Additional Instructions: FOLLOW-UP WITH PCP AND DENTIST IN 1 TO 2 DAYS. TAKE MEDICATIONS PRESCRIBED. RETURN TO ED FOR ANY NEW OR WORSENING SYMPTOMS. e-Prescriptions Clindamycin Hcl (Clindamycin Hcl) 300 Mg Cap 1 CAP PO TID, #30 CAP Prov: KRISTIAN VENEGAS 01/20/25 Discharged With: Self Critical Care Note Critical Care Time?: No Stability Stability form required: No I personally scribed for KRISTIAN VENEGAS ([email or web address]) on 01/20/25 at 11:04. Electronically submitted by Beto Ross ([email or web address]). KRISTIAN VENEGAS Jan 20, 2025 11:04
[2025-01-20] MEDS: cefTRIAXone SOD 1,000 MG VL IM ONE (11:08)
== END 2025-01-20 11:21 | disposition home or self-care (01) ==
LOC: ER 10:36
DX: K04.7 Periapical abscess without sinus (principal); Z79.899 Other long term (current) drug therapy
CPT/HCPCS: 96372; 99283; J0696